=== PATIENT | male | born 1940 | race Caucasian/White ===

== ENCOUNTER 2023-05-05 09:49 | Outpatient (RCR) | payer OTHER, SELFPAY | END 2023-05-05 23:59 | disposition home or self-care (01) | LOC: RPT 09:49 | PROVIDERS: ATTENDING PHYSICIAN Physical Medicine & Rehabilitation; FAMILY PHYSICIAN Family Medicine | DX: S06.9X9D Unspecified intracranial injury with loss of consciousness of unspecified duration, subsequent encounter (principal); Z74.09 Other reduced mobility; S06.339D Contusion and laceration of cerebrum, unspecified, with loss of consciousness of unspecified duration, subsequent encounter; Z73.6 Limitation of activities due to disability; R41.844 Frontal lobe and executive function deficit; R41.840 Attention and concentration deficit; R41.841 Cognitive communication deficit; W18.39XD Other fall on same level, subsequent encounter; Z85.46 Personal history of malignant neoplasm of prostate; Z87.820 Personal history of traumatic brain injury | CPT/HCPCS: 96125; 97110; 97112; 97129; 97130; 97162; 97167; 97530; 97535; 97550 ==

== ENCOUNTER 2023-06-01 13:37 | Outpatient (RCR) | payer OTHER, SELFPAY | END 2023-06-02 06:42 | disposition home or self-care (01) | LOC: RPT 13:37 | PROVIDERS: ATTENDING PHYSICIAN Physical Medicine & Rehabilitation; FAMILY PHYSICIAN Family Medicine | DX: S06.9XAD Unspecified intracranial injury with loss of consciousness status unknown, subsequent encounter (principal); S06.2X9D Diffuse traumatic brain injury with loss of consciousness of unspecified duration, subsequent encounter; S06.37AD Contusion, laceration, and hemorrhage of cerebellum with loss of consciousness status unknown, subsequent encounter; R41.844 Frontal lobe and executive function deficit; R41.840 Attention and concentration deficit; R53.83 Other fatigue; Z73.6 Limitation of activities due to disability; Z74.09 Other reduced mobility | CPT/HCPCS: 97110; 97112; 97129; 97130; 97530; 97535 ==

== ENCOUNTER → 2024-08-23 06:58 | Outpatient (REF) | payer OTHER, SELFPAY | LOC: MRI 06:58 | PROVIDERS: ATTENDING PHYSICIAN Family Medicine | DX: I62.9 Nontraumatic intracranial hemorrhage, unspecified (principal) | CPT/HCPCS: 70551 ==